=== PATIENT | female | born 1955 | race Caucasian/White ===

== ENCOUNTER 2017-11-15 08:02 | Emergency (ER) | payer OTHER, SELFPAY ==
[2017-11-15 08:09] VITALS: BP 113/79; PULSE 73; RESP 16; TEMP 36.8; O2SAT 99
--- NOTE | 2017-11-15 08:29 | DI.RAD_ITS ---
SYMPTOM/DIAGNOSIS: COUGH, YELLOW SPUTUM, CRACKLES LT LOWER BASE PA AND LATERAL CHEST: Comparison is made with 11/24/15. The heart is normal in size. The lungs are clear. The mediastinal structures and pleura appear intact. CONCLUSION: Normal chest.
--- NOTE | 2017-11-15 08:42 | ED.GENADUL_ITS ---
Discharge Plan Disposition Patient Disposition: HOME Condition: Good Discharge Details Chief Complaint: RespSymp Clinical Impression: URI (upper respiratory infection), Cough, Community acquired pneumonia Primary Care Provider: Mikel Saldana ED Provider: Steve Falk Home Meds and New Rx's Prescriptions: New acetaminophen [Mapap Extra Strength] 500 MG tablet 1,000 mg PO Q6H 5 Days Qty: 60 RF: 0 ibuprofen [Motrin IB] 200 MG tablet 600 mg PO Q6H 5 Days Qty: 60 RF: 0 albuterol sulfate 90 mcg/actuation HFA aerosol inhaler 1 puff IH Q6H PRN (Reason: bronchospasm) Qty: 6.7 RF: 0 azithromycin 250 mg tablet See Label Instructions .ROUTE .COMPLEX Qty: 6 RF: 0 No Action gabapentin 100 MG capsule 100 mg PO HS 30 Days Qty: 30 RF: 5 ibuprofen 800 MG tablet 800 mg PO TID PRN (Reason: pain) 90 Days Qty: 90 RF: 3 valacyclovir [Valtrex] 500 MG tablet 500 mg PO Q12 HR Qty: 90 RF: 1 progesterone micronized [Prometrium] 200 MG capsule 200 mg PO DAILY Qty: 90 RF: 1 estradiol 0.5 MG tablet 0.5 mg PO DAILY Qty: 390 RF: 1 Discharge Instructions Instructions: Community Acquired Pneumonia (ED), Acute Cough (ED) Additional Instructions: Please take the antibiotic, the inhaler, Tylenol and Motrin for your throat pain. If you notice any worsening of your symptoms, or any new symptoms such as vomiting, diarrhea, fever, chills, shortness of breath, chest pain, numbness , weakness, or fainting , please return immediately to the emergency department for reevaluation. Please follow up with your primary care provider as soon as possible for reassessment and reevaluation. As always, it was a pleasure participating in your medical care today. Referrals: Mikel Saldana [Primary Care Provider] - Medical Decision Making This is a 62-year-old female who presents with 1 week of malaise, upper respiratory infection symptoms, mild cough with productive yellow sputum. She denies any chest pain, fever, severe neck pain. Physical exam demonstrates minimal crackles in left lower lung niño. We will get an x-ray to evaluate for potential pneumonia. She has a history of a tonsillectomy, throat shows no significant abnormalities. Although she has a mild sore throat she shows no evidence of airway compromise, swelling in her throat, difficulty swallowing, or signs of Cezar's angina. We will give Toradol and Decadron, as well as one breathing treatment. I feel her symptoms are most likely secondary to a viral URI, and potentially chronic bronchitis. With normal vital signs and no signs of acute distress, I feel that she will be safe for discharge home. 9:40 AM Patient is feeling much better after her breathing treatment, the viscous lidocaine the Decadron and Toradol. Chest x-ray shows concerns for mild questionable right middle lobe and posterior retrocardiac small infiltrate. With her clinical symptoms as well as the prolonged duration I feel that she the patient would benefit from an antibiotic trial for potential community- acquired pneumonia. We will recommend continued hydration at home, I will give her a albuterol inhaler for her respiratory symptoms as she did have a notable improvement here with her DuoNeb. Recommend continued fluids Tylenol and Motrin as needed. We discussed red flags which to return. I have extensively reviewed the treatment plan and discharge instructions with the patient. I have addressed all patient concerns at this time. The patient was made aware of what symptoms to monitor for that would warrant a return to the emergency department. Discussed the plan with the patient, they demonstrate verbal understanding and agreement with our assessment and plan at this time. HPI General Date/Time Provider Initiated Documentation: 11/15/17 08:12 . HPI Narrative: This is a 62-year-old female with a past medical history of herpes, takes valacyclovir, as well as supplemental estrogen to moderate her menopause symptoms. She presents today for feelings of malaise upper respiratory symptoms. Patient states that for the last week she has had mild sore throat, congestion, runny nose, mild cough with productive yellow sputum. Her symptoms have continued and not improved over the last few days. She also does have mild headache, which she states it is in the front of her neck, with no associated neck pain. She denies any fevers or vomiting, she does admit to occasional loose stool. She denies any hemoptysis, hematemesis, hematochezia, melena, acholic stool. She denies any chest pain, arm pain, or neck pain. She denies any symptoms of shortness of breath. Denies PE risk factors such as recent long car rides, immobilization, recent surgery, prior history of DVT or PE, family history of PE or DVT, morbid obesity, and smoking , hemoptysis, history of cancer. She denies any cardiac or intracranial disease. She denies any other complaints at this time. She denies any tobacco abuse. She denies any pertinent recent surgeries, she denies any pertinent family history. Related Data Home Medications Medication Instructions Recorded Confirmed gabapentin 100 mg PO HS 30 Days #30 tab-cap 07/30/17 11/15/17 ibuprofen 800 mg tablet 800 mg PO TID PRN 90 Days #90 09/21/17 11/15/17 tab-cap estradiol 0.5 mg PO DAILY #390 tab-cap 09/27/17 11/15/17 progesterone micronized 200 mg PO DAILY #90 tab-cap 09/27/17 11/15/17 [Prometrium] valacyclovir [Valtrex] 500 mg PO Q12 HR #90 tab-cap 09/27/17 11/15/17 acetaminophen [Mapap Extra 1,000 mg PO Q6H 5 Days #60 tab 11/15/17 Strength] albuterol sulfate 1 puff IH Q6H PRN #6.7 gm 11/15/17 azithromycin See Label Instructions .ROUTE 11/15/17 .COMPLEX #6 tab ibuprofen [Motrin Ib] 600 mg PO Q6H 5 Days #60 tab 11/15/17 Previous Rx's Medication Instructions Recorded gabapentin 100 mg PO HS 30 Days #30 tab-cap 07/30/17 ibuprofen 800 mg tablet 800 mg PO TID PRN 90 Days #90 09/21/17 tab-cap estradiol 0.5 mg PO DAILY #390 tab-cap 09/27/17 progesterone micronized 200 mg PO DAILY #90 tab-cap 09/27/17 [Prometrium] valacyclovir [Valtrex] 500 mg PO Q12 HR #90 tab-cap 09/27/17 acetaminophen [Mapap Extra 1,000 mg PO Q6H 5 Days #60 tab 11/15/17 Strength] albuterol sulfate 1 puff IH Q6H PRN #6.7 gm 11/15/17 azithromycin See Label Instructions .ROUTE 11/15/17 .COMPLEX #6 tab ibuprofen [Motrin Ib] 600 mg PO Q6H 5 Days #60 tab 11/15/17 Allergies Allergy/AdvReac Type Severity Reaction Status Date / Time No Known Allergies Allergy Unverified 11/15/17 08:14 General Stated Complaint: RespSymp TORIBIO: 3 Review of Systems Review of Systems All systems reviewed & are unremarkable except as noted in HPI and below PFSH Family History Father Hearing loss Kidney stones Mother Chronic pain Brother No problems noted. Brother Neoplasm Grandfather Diabetes Essential hypertension Grandmother No problems noted. Son Neoplasm Daughter No problems noted. Medical History Pancreatic cyst Social History Smoking/Tobacco Use Status: Never Surgical History section Cholecystectomy Removal of benign pancreatic cyst Exam Narrative Exam Narrative: 1.Const: Well-nourished, Well-developed, appearing stated age 2.Eyes: PERRL, no conjunctival injection, and symmetrical lids. 3.ENT: Atraumatic external nose and ears. Moist MM. Neck: Symmetric, trachea midline, No thyromegaly. Tonsils absent no erythema, uvula midline, no signs of parapharyngeal compromise, no signs of neck swelling or tenderness, no evidence of swelling in the anterior neck spaces. Patient demonstrates good movement of cervical neck. There is no nuchal rigidity, no nuchal tenderness. Patient is able to flex the neck without any difficulty or significant pain. Negative Kernig's and Brudzinski sign. 4.CVS: +S1/S2, No murmurs or gallops. Peripheral pulses 2+ and equal in all extremities. Brisk capillary refill in all extremities. 5.RESP: Unlabored respiratory effort. Clear to auscultation bilaterally. No wheezes or rhonchi, however minimal crackles in the left lower lung niño. 6.GI: Soft, Nontender/Nondistended, No hepatosplenomegaly. No guarding or rebound. 7.MSK: Normocephalic/Atraumatic, Extremities w/o deformity or ttp No cyanosis or clubbing, Normal movement of all extremities 8.Skin: Warm, Dry. No rashes or lesions. 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 Sensation grossly intact, no focal neurologic deficits. 10.Psych: (AAO) x3. Appropriate mood and affect Course Vital Signs Temperature 36.8 C 11/15/17 08:09 Pulse 73 11/15/17 08:09 Respiratory Rate 16 11/15/17 08:09 Blood Pressure 113/79 11/15/17 08:09 Pulse Oximetry 99 11/15/17 08:09 Temperature 36.8 C 11/15/17 08:09 Temperature Source Skin 11/15/17 08:09 Pulse 73 11/15/17 08:09 Respiratory Rate 16 11/15/17 08:09 Respiratory Effort 11/15/17 08:11 Respiratory Depth Normal 11/15/17 08:11 Blood Pressure 113/79 11/15/17 08:09 Blood Pressure Position Sitting 11/15/17 08:09 Pulse Oximetry 99 11/15/17 08:09 Oxygen Delivery Method Room Air 11/15/17 08:09 Oxygen Flow Rate 0 11/15/17 08:09
[2017-11-15] MEDS: Acetaminophen 500 MG TAB 1000 MG PO (08:48)
[2017-11-15] MEDS: Lidocaine 2% Viscous 15 ML CUP PO (08:50)
[2017-11-15] MEDS: Albuterol/Ipratropium 3 ML UPD VIAL UPD (08:55)
[2017-11-15] MEDS: Ketorolac 30 MG/ML VIAL 15 MG IM (08:55)
[2017-11-15] MEDS: Dexamethasone 10 MG/ML VIAL (08:57)
--- NOTE | 2017-11-15 08:59 | NUR.NOTE ---
Nursing Note: Report taken from [place] RN. Patient assessed - resting comfortably, NAD. Medications given per orders. Will continue to monitor. Callbell within reach.
[2017-11-15 09:50] VITALS: BP 113/79; PULSE 73; RESP 16; TEMP 36.8; O2SAT 99
== END 2017-11-15 09:50 | disposition home or self-care (01) ==
PROVIDERS: Emergency Provider Student in an Organized Health Care Education/Training Program; PCP Family Medicine
DX: J18.9 Pneumonia, unspecified organism (principal); J06.9 Acute upper respiratory infection, unspecified
CPT/HCPCS: 94640; 96372; 96374; 99284; 71046; 99285; J1100; J1885; J7620

== ENCOUNTER 2018-02-28 08:08 | Outpatient (CLI) | payer OTHER, SELFPAY ==
[2018-02-28 12:54] LABS: HCT 42.2 % (36.0-46.0); HGB 14.2 g/dL (12.0-15.5); Mean Corp. HGB Concentration 33.6 g/dL (32.0-36.0); Mean Corpuscular Hemoglobin 29.5 pg (27.0-33.0); Mean Corpuscular Volume 87.6 fL (80-95); Platelet Count 190 x1000/uL (130-400); RBC 4.82 m/cumm (4.00-5.20); RBC Distribution Width 12.5 % (11.7-14.6)
[2018-02-28 13:40] LABS: ALT 21 U/L (12-78); AST 15 U/L (15-37); Albumin 3.8 g/dL (3.4-5.0); Alkaline Phosphatase 79 U/L (46-116); Anion Gap 6.1 mmol/L (3-11); BUN 23 mg/dL (7-18); Bilirubin, Total 0.3 mg/dL (0.2-1.0); CO2 28.9 mmol/L (21.0-32.0); CREATININE 0.83 mg/dL (0.55-1.02); Calcium 9.1 mg/dL (8.5-10.1); Chloride 104 mmol/L (98-107); Cholesterol 237 mg/dL (50-200); Glucose 92 mg/dL (70-100); HDL Cholesterol 53 mg/dL (40-60); LDL CHOLESTEROL 146 mg/dL (<100); Potassium 3.9 mmol/L (3.5-5.1); Sodium 139 mmol/L (136-145); Total Protein 6.8 g/dL (6.4-8.2); Triglyceride 224 mg/dL (30-150)
== END 2018-02-28 08:28 ==
PROVIDERS: PCP Family Medicine; Visit Provider Family Medicine
DX: Z00.00 Encounter for general adult medical examination without abnormal findings (principal); Z13.228 Encounter for screening for other metabolic disorders; Z13.220 Encounter for screening for lipoid disorders; Z13.29 Encounter for screening for other suspected endocrine disorder; Z01.818 Encounter for other preprocedural examination
CPT/HCPCS: 36415; 80053; 80061; 83721; 85027; 84443

== ENCOUNTER 2018-05-28 11:45 | Outpatient (CLI) | payer OTHER, SELFPAY ==
--- NOTE | 2018-05-28 11:40 | DI.RAD_ITS ---
SYMPTOM/DIAGNOSIS: CHEST PAIN, R07.9 PA AND LATERAL CHEST: The heart is normal in size. The lungs are clear. The mediastinal structures and pleura appear intact. CONCLUSION: Normal chest.
[2018-05-28 12:11] LABS: Abs Immature Grans 0.01 k/cumm (0.0-0.09); Absolute Basophil Count 0.03 k/cumm (0.0-0.2); Absolute Eosinophil Count 0.04 k/cumm (0.0-0.7); Absolute Lymphocyte Count 1.89 k/cumm (1.2-3.4); Absolute Monocyte Count 0.43 k/cumm (0.11-0.7); Basophils % 0.4; Eosinophils % 0.6; HCT 42.8 % (36.0-46.0); HGB 14.3 g/dL (12.0-15.5); Immature Grans % 0.1; Lymphocytes % 27.8; Mean Corp. HGB Concentration 33.4 g/dL (32.0-36.0); Mean Corpuscular Hemoglobin 29.3 pg (27.0-33.0); Mean Corpuscular Volume 87.7 fL (80-95); Mean Platelet Volume 11.2 fL (8.0-11.0); Monocytes % 6.3; Neutrophils % 64.8; Platelet Count 156 x1000/uL (130-400); RBC 4.88 m/cumm (4.00-5.20); RBC Distribution Width 12.3 % (11.7-14.6)
[2018-05-28 13:43] LABS: ALT 20 U/L (12-78); AST 12 U/L (15-37); Albumin 3.8 g/dL (3.4-5.0); Alkaline Phosphatase 86 U/L (46-116); Anion Gap 9.9 mmol/L (3-11); BUN 20 mg/dL (7-18); Bilirubin, Total 0.4 mg/dL (0.2-1.0); CO2 27.1 mmol/L (21.0-32.0); CREATININE 0.91 mg/dL (0.55-1.02); Calcium 9.1 mg/dL (8.5-10.1); Chloride 103 mmol/L (98-107); Cholesterol 226 mg/dL (50-200); Glucose 117 mg/dL (70-100); HDL Cholesterol 45 mg/dL (40-60); LDL CHOLESTEROL 132 mg/dL (<100); Potassium 3.9 mmol/L (3.5-5.1); Sodium 140 mmol/L (136-145); TSH (W/Ref FT4) 1.54 uIU/mL (0.358-3.74); Total Protein 6.8 g/dL (6.4-8.2); Triglyceride 290 mg/dL (30-150)
== END 2018-05-28 12:05 ==
PROVIDERS: PCP Family Medicine; Visit Provider Family Medicine
DX: R07.9 Chest pain, unspecified (principal); E78.5 Hyperlipidemia, unspecified
CPT/HCPCS: 36415; 80053; 80061; 83721; 71046; 84443; 85025

== ENCOUNTER 2018-06-05 15:02 | Emergency (ER) | payer OTHER, SELFPAY ==
[2018-06-05 15:14] VITALS: BP 106/64; PULSE 58; RESP 20; TEMP 36.8; O2SAT 95
[2018-06-05 15:25] VITALS: RESP 20
--- NOTE | 2018-06-05 15:28 | NUR.NOTE ---
Pt declines an IV--states will have blood drawn but will not stay for a 2nd troponin.Nursing Note:
--- NOTE | 2018-06-05 15:30 | W.ED.GENAD ---
Discharge Plan Disposition Patient Disposition: HOME Condition: Stable Discharge Details Chief Complaint: Chest Pain Clinical Impression: Chest pain Primary Care Provider: Mikel Saldana ED Provider: Donaldo Young Home Meds and New Rx's Prescriptions: No Action buspirone 10 mg tablet 5 mg PO BID RF: 0 aspirin [Adult Aspirin Regimen] 81 mg tablet,delayed release (DR/EC) 81 mg PO DAILY Qty: 90 RF: 0 nitroglycerin [Nitrostat] 0.4 mg tablet, sublingual 0.4 mg SL Q5-15M PRN (Reason: chest pain) Qty: 20 RF: 0 estradiol 0.5 mg tablet 0.5 mg PO DAILY Qty: 90 RF: 3 progesterone micronized [Prometrium] 200 mg capsule 200 mg PO DAILY Qty: 90 RF: 1 valacyclovir [Valtrex] 500 MG tablet 500 mg PO Q12 HR Qty: 90 RF: 1 gabapentin 100 mg capsule 100 mg PO HS 30 Days Qty: 30 RF: 11 albuterol sulfate 90 mcg/actuation HFA aerosol inhaler 1 puff IH Q6H PRN (Reason: bronchospasm) Qty: 6.7 RF: 0 Discharge Instructions Additional Instructions: Your blood work did not show any concerning findings follow up for your schedule stress test and your primary care provider after this if your pain significantly worsens, you have vomit or difficulty breathing return to the emergency department Medical Decision Making 62 yo female comes in with chest tightness. She states it started while standing about 3 hours ago. Denies radiation, n/v, diaphoresis or pain with exertion. She was admitted in [facility] this past Sunday for similar symptoms with negative w/u per pt and is scheduled for outpatient stress test . She currently states her pain is all but gone, ecg non diagnostic. She has no tachycardia, hypoxia or evidence of dvt on exam so doubt Pe at this time. no tearing back pain and normal vascular exam so doubt dissection. She has normal lung sounds without cough or fever or pleuritic pain so doubt ptx or pna and will hold on chest xray at this time. I suspect anxiety, heart score is 3. Will obtain troponin. pt's initial labs unremarkable, and remains stable. I recommended second troponin but she declined, she has the capacity to make her own decisions and understands risks of leaving without second troponin including and disability. She is going to f/u with her pcp and return precautions given Differential Diagnosis acs, chest wall pain, anxiety Lab Data Lab results reviewed: Yes I reviewed the patient's lab results. ECG Data Attestation: I personally reviewed and interpreted this ECG (s) as follows: Prior ECG tracings: not available for review Interpretation: sinus bradycardia, rate of 53, no acute st t wave ischemic findings HPI General Mode of arrival: ambulatory. Date/Time Provider Initiated Documentation: 06/05/18 15:04. Limitations to Documentation: no limitations. Information obtained by: patient. History of Present Illness 62 year old F presents to the emergency department with the chief complaint of chest pain, described as moderate, Quality is described as aching, and is localized to the chest. Patient reports no radiation. Patient started experiencing this hour(s) (3) and it has been other (improving). No relieving factors improve symptom(s), No exacerbating factors reported . Patient did receive the following treatments prior to arrival, none Related Data Home Medications Medication Instructions Recorded Confirmed valacyclovir [Valtrex] 500 mg PO Q12 HR #90 tab-cap 09/27/17 06/05/18 albuterol sulfate 1 puff IH Q6H PRN #6.7 gm 11/15/17 06/05/18 gabapentin 100 mg capsule 100 mg PO HS 30 Days #30 tab-cap 12/21/17 06/05/18 buspirone 10 mg tablet 5 mg PO BID tab 02/25/18 06/05/18 estradiol 0.5 mg tablet 0.5 mg PO DAILY #90 tab-cap 04/18/18 06/05/18 progesterone micronized 200 mg 200 mg PO DAILY #90 tab-cap 04/18/18 06/05/18 capsule aspirin 81 mg tablet,delayed 81 mg PO DAILY #90 tab 05/28/18 06/05/18 release nitroglycerin 0.4 mg sublingual 0.4 mg SL Q5-15M PRN #20 tab 05/28/18 06/05/18 tablet Previous Rx's Medication Instructions Recorded valacyclovir [Valtrex] 500 mg PO Q12 HR #90 tab-cap 09/27/17 albuterol sulfate 1 puff IH Q6H PRN #6.7 gm 11/15/17 gabapentin 100 mg capsule 100 mg PO HS 30 Days #30 tab-cap 12/21/17 estradiol 0.5 mg tablet 0.5 mg PO DAILY #90 tab-cap 04/18/18 progesterone micronized 200 mg 200 mg PO DAILY #90 tab-cap 04/18/18 capsule aspirin 81 mg tablet,delayed 81 mg PO DAILY #90 tab 05/28/18 release nitroglycerin 0.4 mg sublingual 0.4 mg SL Q5-15M PRN #20 tab 05/28/18 tablet Allergies Allergy/AdvReac Type Severity Reaction Status Date / Time No Known Allergies Allergy Unverified 06/03/18 13:07 General Stated Complaint: Chest Pain TORIBIO: 2 Review of Systems Review of Systems All systems reviewed & are unremarkable except as noted in HPI and below Constitutional Denies chills, Denies fever(s) and Denies weakness ENT Denies change in voice Cardiovascular Denies dyspnea Respiratory Denies cough and Denies dyspnea Gastrointestinal Denies abdominal pain, Denies nausea and Denies vomiting Integumentary/Breasts Denies rash Neurologic Denies weakness PFSH Surgical History section Cholecystectomy Removal of benign pancreatic cyst Family History Father Hearing loss Kidney stones Mother Chronic pain Brother No problems noted. Brother Prostate cancer Paternal Grandfather Diabetes Essential hypertension Maternal Grandmother No problems noted. Son Cancer Maternal Grandfather Liver cancer Paternal Grandmother Heart disease Social History Smoking/Tobacco Use Status: Never Alcohol Intake: never Drug use: Never Substance use type: does not use Household members: none Housing: house Pets and animals: No Sexually active: Yes Do you think of yourself as: straight/heterosexual Current gender identity: female Duration: 15-30 minutes/day Frequency: 3-4 times per week Estela/Moravian: Sabianist Do you feel safe at home: Yes Do you feel safe in your relationship?: Yes Exam Const General: no acute distress Orientation: alert HENMA Head: normal to inspection Ears: external ears normal General nose exam: external nose normal Mouth: moist mucous membranes Eyes General: appearance normal, both eyes and all related structures Neck Neck: normal visual inspection Resp Effort & Inspection: normal respiratory effort and able to speak in complete sentences Cardio Rate: regular rate Skin General skin exam: no rashes or lesions noted Neuro General: alert and oriented x3 Extrem General: normal to inspection Psych Mental Status: mental status grossly normal Course Vital Signs Temperature 36.8 C 06/05/18 15:14 Pulse 58 L 06/05/18 15:14 Respiratory Rate 20 06/05/18 15:14 Blood Pressure 106/64 06/05/18 15:14 Pulse Oximetry 95 06/05/18 15:14 Temperature 36.8 C 06/05/18 15:14 Temperature Source Temporal Artery Scan 06/05/18 15:14 Pulse 58 L 06/05/18 15:14 Respiratory Rate 20 06/05/18 15:14 Respiratory Effort Non-Labored 06/05/18 15:14 Blood Pressure 106/64 06/05/18 15:14 Blood Pressure Position Standing 06/05/18 15:14 Pulse Oximetry 95 06/05/18 15:14 Pain Level 2 06/05/18 15:14
--- NOTE | 2018-06-05 15:35 | ED.GENADUL_ITS ---
Discharge Plan Disposition Patient Disposition: HOME Condition: Stable Discharge Details Chief Complaint: Chest Pain Clinical Impression: Chest pain Primary Care Provider: Mikel Saldana ED Provider: Donaldo Young Home Meds and New Rx's Prescriptions: No Action buspirone 10 mg tablet 5 mg PO BID RF: 0 aspirin [Adult Aspirin Regimen] 81 mg tablet,delayed release (DR/EC) 81 mg PO DAILY Qty: 90 RF: 0 nitroglycerin [Nitrostat] 0.4 mg tablet, sublingual 0.4 mg SL Q5-15M PRN (Reason: chest pain) Qty: 20 RF: 0 estradiol 0.5 mg tablet 0.5 mg PO DAILY Qty: 90 RF: 3 progesterone micronized [Prometrium] 200 mg capsule 200 mg PO DAILY Qty: 90 RF: 1 valacyclovir [Valtrex] 500 MG tablet 500 mg PO Q12 HR Qty: 90 RF: 1 gabapentin 100 mg capsule 100 mg PO HS 30 Days Qty: 30 RF: 11 albuterol sulfate 90 mcg/actuation HFA aerosol inhaler 1 puff IH Q6H PRN (Reason: bronchospasm) Qty: 6.7 RF: 0 Discharge Instructions Additional Instructions: Your blood work did not show any concerning findings follow up for your schedule stress test and your primary care provider after this if your pain significantly worsens, you have vomit or difficulty breathing return to the emergency department Medical Decision Making 62 yo female comes in with chest tightness. She states it started while standing about 3 hours ago. Denies radiation, n/v, diaphoresis or pain with exertion. She was admitted in [facility] this past Sunday for similar symptoms with n egative w/u per pt and is scheduled for outpatient stress test . She currently states her pain is all but gone, ecg non diagnostic. She has no tachycardia, hypoxia or evidence of dvt on exam so doubt Pe at this time. no tearing back pain and normal vascular exam so doubt dissection. She has normal lung sounds without cough or fever or pleuritic pain so doubt ptx or pna and will hold on chest xray at this time. I suspect anxiety, heart score is 3. Will obtain troponin. pt's initial labs unremarkable, and remains stable. I recommended second troponin but she declined, she has the capacity to make her own decisions and understands risks of leaving without second troponin including and disability. She is going to f/u with her pcp and return precautions given Differential Diagnosis acs, chest wall pain, anxiety Lab Data Lab results reviewed: Yes I reviewed the patient's lab results. ECG Data Attestation: I personally reviewed and interpreted this ECG (s) as follows: Prior ECG tracings: not available for review Interpretation: sinus bradycardia, rate of 53, no acute st t wave ischemic findings HPI General Mode of arrival: ambulatory . Date/Time Provider Initiated Documentation: 06/05/18 15:04 . Limitations to Documentation: no limitations . Information obtained by: patient . History of Present Illness 62 year old F presents to the emergency department with the chief complaint of chest pain, described as moderate, Quality is described as aching, and is localized to the chest. Patient reports no radiation. Patient started experiencing this hour(s) (3) and it has been other (improving). No relieving factors improve symptom(s), No exacerbating factors reported . Patient did receive the following treatments prior to arrival, none Related Data Home Medications Medication Instructions Recorded Confirmed valacyclovir [Valtrex] 500 mg PO Q12 HR #90 tab-cap 09/27/17 06/05/18 albuterol sulfate 1 puff IH Q6H PRN #6.7 gm 11/15/17 06/05/18 gabapentin 100 mg capsule 100 mg PO HS 30 Days #30 tab-cap 12/21/17 06/05/18 buspirone 10 mg tablet 5 mg PO BID tab 02/25/18 06/05/18 estradiol 0.5 mg tablet 0.5 mg PO DAILY #90 tab-cap 04/18/18 06/05/18 progesterone micronized 200 mg 200 mg PO DAILY #90 tab-cap 04/18/18 06/05/18 capsule aspirin 81 mg tablet,delayed 81 mg PO DAILY #90 tab 05/28/18 06/05/18 release nitroglycerin 0.4 mg sublingual 0.4 mg SL Q5-15M PRN #20 tab 05/28/18 06/05/18 tablet Previous Rx's Medication Instructions Recorded valacyclovir [Valtrex] 500 mg PO Q12 HR #90 tab-cap 09/27/17 albuterol sulfate 1 puff IH Q6H PRN #6.7 gm 11/15/17 gabapentin 100 mg capsule 100 mg PO HS 30 Days #30 tab-cap 12/21/17 estradiol 0.5 mg tablet 0.5 mg PO DAILY #90 tab-cap 04/18/18 progesterone micronized 200 mg 200 mg PO DAILY #90 tab-cap 04/18/18 capsule aspirin 81 mg tablet,delayed 81 mg PO DAILY #90 tab 05/28/18 release nitroglycerin 0.4 mg sublingual 0.4 mg SL Q5-15M PRN #20 tab 05/28/18 tablet Allergies Allergy/AdvReac Type Severity Reaction Status Date / Time No Known Allergies Allergy Unverified 06/03/18 13:07 General Stated Complaint: Chest Pain TORIBIO: 2 Review of Systems Review of Systems All systems reviewed & are unremarkable except as noted in HPI and below Constitutional Denies chills, Denies fever(s) and Denies weakness ENT Denies change in voice Cardiovascular Denies dyspnea Respiratory Denies cough and Denies dyspnea Gastrointestinal Denies abdominal pain, Denies nausea and Denies vomiting Integumentary/Breasts Denies rash Neurologic Denies weakness PFSH Surgical History section Cholecystectomy Removal of benign pancreatic cyst Family History Father Hearing loss Kidney stones Mother Chronic pain Brother No problems noted. Brother Prostate cancer Paternal Grandfather Diabetes Essential hypertension Maternal Grandmother No problems noted. Son Cancer Maternal Grandfather Liver cancer Paternal Grandmother Heart disease Social History Smoking/Tobacco Use Status: Never Alcohol Intake: never Drug use: Never Substance use type: does not use Household members: none Housing: house Pets and animals: No Sexually active: Yes Do you think of yourself as: straight/heterosexual Current gender identity: female Duration: 15-30 minutes/day Frequency: 3-4 times per week Estela/Islam: Pentecostalism Do you feel safe at home: Yes Do you feel safe in your relationship?: Yes Exam Const General: no acute distress Orientation: alert HENMT Head: normal to inspection Ears: external ears normal General nose exam: external nose normal Mouth: moist mucous membranes Eyes General: appearance normal, both eyes and all related structures Neck Neck: normal visual inspection Resp Effort & Inspection: normal respiratory effort and able to speak in complete sentences Cardio Rate: regular rate Skin General skin exam: no rashes or lesions noted Neuro General: alert and oriented x3 Extrem General: normal to inspection Psych Mental Status: mental status grossly normal Course Vital Signs Temperature 36.8 C 06/05/18 15:14 Pulse 58 L 06/05/18 15:14 Respiratory Rate 20 06/05/18 15:14 Blood Pressure 106/64 06/05/18 15:14 Pulse Oximetry 95 06/05/18 15:14 Temperature 36.8 C 06/05/18 15:14 Temperature Source Temporal Artery Scan 06/05/18 15:14 Pulse 58 L 06/05/18 15:14 Respiratory Rate 20 06/05/18 15:14 Respiratory Effort Non-Labored 06/05/18 15:14 Blood Pressure 106/64 06/05/18 15:14 Blood Pressure Position Standing 06/05/18 15:14 Pulse Oximetry 95 06/05/18 15:14 Pain Level 2 06/05/18 15:14
[2018-06-05 15:43] LABS: Absolute Basophil Count 0.03 k/cumm (0.0-0.2); Absolute Eosinophil Count 0.03 k/cumm (0.0-0.7); Absolute Lymphocyte Count 1.49 k/cumm (1.2-3.4); Absolute Monocyte Count 0.43 k/cumm (0.11-0.7); Absolute Neutrophil Count 4.32 k/cumm (1.2-6.7); Basophils % 0.5; Eosinophils % 0.5; HCT 40.5 % (36.0-46.0); HGB 13.4 g/dL (12.0-15.5); Lymphocytes % 23.7; Mean Corp. HGB Concentration 33.1 g/dL (32.0-36.0); Mean Corpuscular Hemoglobin 28.9 pg (27.0-33.0); Mean Corpuscular Volume 87.3 fL (80-95); Mean Platelet Volume 11.1 fL (8.0-11.0); Monocytes % 6.8; Neutrophils % 68.5; Platelet Count 169 x1000/uL (130-400); RBC 4.64 m/cumm (4.00-5.20); RBC Distribution Width 12.3 % (11.7-14.6)
[2018-06-05 16:00] LABS: ALT 18 U/L (12-78); AST 12 U/L (15-37); Albumin 3.8 g/dL (3.4-5.0); Alkaline Phosphatase 82 U/L (46-116); Anion Gap 9.1 mmol/L (3-11); BUN 28 mg/dL (7-18); Bilirubin, Total 0.3 mg/dL (0.2-1.0); CO2 26.9 mmol/L (21.0-32.0); CREATININE 0.88 mg/dL (0.55-1.02); Calcium 9.7 mg/dL (8.5-10.1); Chloride 104 mmol/L (98-107); Glucose 93 mg/dL (70-100); Potassium 3.8 mmol/L (3.5-5.1); Sodium 140 mmol/L (136-145); Total Protein 6.9 g/dL (6.4-8.2)
[2018-06-05 16:07] LABS: Troponin I < 0.02 ng/mL (0.00-0.06)
--- NOTE | 2018-06-05 16:08 | NUR.NOTE ---
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
== END 2018-06-05 16:24 | disposition home or self-care (01) ==
PROVIDERS: Emergency Provider Emergency Medicine; PCP Family Medicine
DX: R07.9 Chest pain, unspecified (principal); R00.2 Palpitations
CPT/HCPCS: 36415; 80053; 93005; 99284; 84484; 85025; 93010

== ENCOUNTER 2018-06-10 00:40 | Outpatient (CLI) | payer OTHER, SELFPAY ==
--- NOTE | 2018-06-10 09:00 | DI.MAMMO_ITS ---
SYMPTOM/DIAGNOSIS: SCREENING, GENERAL WELL FEMALE EXAM, Z00.00 MAMMOGRAMS: Mammograms were interpreted according to the usual protocol including computer analysis with CAD system, tomosynthesis and C view imaging. Comparison is made with prior examinations. Breast density, Category C. No suspicious masses or microcalcifications are seen. There is a focal asymmetric density in the upper left breast seen on the mediolateral oblique view. This appears more prominent compared to the prior examination. A spot compression view is requested. Ultrasound may be indicated at that time. IMPRESSION: Additional views of the left breast as described above. Category 0. MQSA ASSESSMENT OF FINDINGS: Incomplete: Needs additional imaging evaluation. Category 0. Patient will receive a letter notifying them of these results. Bi-RADS category C. The breasts are heterogeneously dense, which may obscure small masses. Patient was scheduled for 06/28/18 and called and put appointment in pending and said wanted to wait on this. We will send results to Dr Saldana making him aware of this.
== END 2018-06-10 01:00 ==
PROVIDERS: PCP Family Medicine; Visit Provider Family Medicine
DX: Z00.00 Encounter for general adult medical examination without abnormal findings (principal); Z12.31 Encounter for screening mammogram for malignant neoplasm of breast; R92.8 Other abnormal and inconclusive findings on diagnostic imaging of breast
CPT/HCPCS: 77063; 77067

== ENCOUNTER 2018-10-23 11:09 | Outpatient (CLI) | payer OTHER, SELFPAY ==
[2018-10-23 12:16] LABS: HCT 41.9 % (36.0-46.0); HGB 13.9 g/dL (12.0-15.5); Mean Corp. HGB Concentration 33.2 g/dL (32.0-36.0); Mean Corpuscular Hemoglobin 28.7 pg (27.0-33.0); Mean Corpuscular Volume 86.6 fL (80-95); Mean Platelet Volume 11.9 fL (8.0-11.0); Platelet Count 181 x1000/uL (130-400); RBC 4.84 m/cumm (4.00-5.20); RBC Distribution Width 12.9 % (11.7-14.6); White Blood Cell Count 6.63 k/cumm (4.4-10.8)
[2018-10-23 12:54] LABS: ALT 19 U/L (14-59); AST 14 U/L (15-37); Albumin 3.8 g/dL (3.4-5.0); Alkaline Phosphatase 89 U/L (46-116); Anion Gap 10.1 mmol/L (3-11); BUN 13 mg/dL (7-18); Bilirubin, Total 0.6 mg/dL (0.2-1.0); CO2 24.9 mmol/L (21.0-32.0); CREATININE 0.82 mg/dL (0.55-1.02); Calcium 8.9 mg/dL (8.5-10.1); Chloride 103 mmol/L (98-107); Glucose 111 mg/dL (70-100); Potassium 4.4 mmol/L (3.5-5.1); Sodium 138 mmol/L (136-145); TSH (W/Ref FT4) 0.87 uIU/mL (0.36-3.74); Total Protein 6.6 g/dL (6.4-8.2)
== END 2018-10-23 11:29 ==
PROVIDERS: PCP Family Medicine; Visit Provider Family Medicine
DX: K59.00 Constipation, unspecified (principal)
CPT/HCPCS: 36415; 80053; 85027; 84443

== ENCOUNTER 2019-07-10 02:05 | Outpatient (CLI) | payer OTHER, SELFPAY ==
--- NOTE | 2019-07-10 08:30 | DI.MAMMO_ITS ---
EXAM: MAMMO SCREENING CLINICAL HISTORY: screening,Z12.39 TECHNIQUE: Mammograms were interpreted according to the usual protocol including computer analysis w [employer] CAD system, tomosynthesis and C-view imaging. COMPARISON: 2011 through 2019. FINDINGS: The breasts are composed of heterogeneously dense fibroglandular densities, Breast Density category C . No suspicious masses or suspicious microcalcifications are seen. No skin thickening or abnormal axillary lymph nodes are seen. There has been no significant change from prior exams. IMPRESSION: BI-RADS Category 1: Negative mammogram. Yearly screening mammography is recommended. Breast density category C, heterogeneously dense tissue which decreases the sensitivity of the mammog rohith. The mammogram demonstrates the patient's breast tissue is dense. Dense breast tissue is very common a nd is not abnormal but dense breast tissue can make it harder to find cancer on a mammogram. Also, de nse breast tissue may increase breast cancer risk. This information about the result of the mammogram report was provided to the patient to raise their awareness. Use this report when you speak with the patient about their risks for breast cancer, which includes their family history. At that time, you may recommend additional screening tests (Ultrasound or MRI) as they might be useful based on their r isk. A negative radiographic report should not delay biopsy if a dominant or clinically suspicious mass is present. Up to ten percent of cancers are not identified on mammography. A negative report may reinforce clinical impression. Adenosis and dense breasts may obscure an underlying neoplasm. False positive reports average 6 to 10%.
== END 2019-07-10 02:25 ==
PROVIDERS: PCP Family Medicine; Visit Provider Nurse Practitioner Family
DX: Z12.31 Encounter for screening mammogram for malignant neoplasm of breast (principal)
CPT/HCPCS: 77063; 77067

== ENCOUNTER 2020-03-25 20:21 | Outpatient (REF) | payer MEDICARE, OTHER, SELFPAY ==
[2020-03-27 17:05] LABS: COVID-19 RT-PCR UVMMC Result Negative (Negative)
== END 2020-03-25 20:22 | disposition home or self-care (01) ==
LOC: LBN 20:21
PROVIDERS: PCP Family Medicine; Visit Provider Family Medicine
DX: Z20.822 Contact with and (suspected) exposure to COVID-19 (principal)
CPT/HCPCS: U0003

== ENCOUNTER 2020-04-07 17:38 | Outpatient (REF) | payer MEDICARE, OTHER, SELFPAY ==
[2020-04-09 12:16] LABS: Lyme Ab w Rflx to Lyme Confirm Negative (Negative)
== END 2020-04-07 17:39 | disposition home or self-care (01) ==
LOC: LBN 17:38
PROVIDERS: PCP Family Medicine; Visit Provider Emergency Medicine
DX: M25.59 Pain in other specified joint (principal)
CPT/HCPCS: 86618

== ENCOUNTER 2020-05-26 03:07 | Outpatient (CLI) | payer MEDICARE, OTHER, SELFPAY ==
[2020-05-26 12:43] LABS: Hemoglobin A1C 5.4 % (<5.7)
[2020-05-26 13:07] LABS: BUN 19 mg/dL (7-18); CREATININE 0.8 mg/dL (0.55-1.02); Calculated LDL 143 mg/dL (<100); Chloride 108 mmol/L (98-107); Cholesterol 216 mg/dL (<200); Glucose 88 mg/dL (74-106); HDL Cholesterol 52 mg/dL (40-60); Potassium 4.3 mmol/L (3.5-5.1); Sodium 143 mmol/L (136-145); Triglyceride 108 mg/dL (<150); Vitamin B12 1992 pg/mL (193-986)
== END 2020-05-26 03:08 | disposition home or self-care (01) ==
LOC: LOS 03:07
PROVIDERS: PCP Family Medicine; Visit Provider Nurse Practitioner Family
DX: R73.01 Impaired fasting glucose (principal); E78.5 Hyperlipidemia, unspecified; R20.2 Paresthesia of skin
CPT/HCPCS: 36415; 80048; 80061; 82607; 83036

== ENCOUNTER 2020-07-15 09:18 | Outpatient (REF) | payer MEDICARE, OTHER, SELFPAY ==
--- NOTE | 2020-07-15 09:00 | PAPFT_PTH ---
PATIENT: Cierra Terrazas LOC: [facility] U#:[id number] AGE/SX: 64/F ROOM: RE07/15/[address]: FAHEEM Rojas : 1955 BED: DIS: 07/15/2020 SPEC #: [id number] RECD: 07/15/20 12:53 STATUS: NICO REYinka #: [id number] DESTINI: 07/15/20 09:[address]: Melissa Hernandez DEPT: [facility] [place] Cytology RECD BY: Lizz Toro ENTERED: 07/15/20 12:54 SP TYPE: PAPFT OTHR DR: FAHEEM Dubon Tissues: 1 - CX/ENDOCX FOR PAP SMEARS Procedures: PAP THIN PREP/UVM Screening HPV DNA PROBE Comments: [id number]
== END 2020-07-15 09:19 | disposition home or self-care (01) ==
LOC: LBN 09:18
PROVIDERS: PCP Nurse Practitioner Family; Visit Provider Nurse Practitioner Family
DX: Z12.4 Encounter for screening for malignant neoplasm of cervix (principal); Z11.51 Encounter for screening for human papillomavirus (HPV)
CPT/HCPCS: 88142; 87624

== ENCOUNTER 2020-09-23 03:38 | Outpatient (CLI) | payer MEDICARE, OTHER, SELFPAY ==
--- NOTE | 2020-09-23 07:30 | DI.DEXA_ITS ---
Exam(s) XR DEXA BONE DENSITY W/WO OLEG EXAM: XR DEXA BONE DENSITY W/WO OLEG CLINICAL HISTORY: assess for osteoporosis IN POSTMENOPAUSAL WOMAN,Z78.0 TECHNIQUE: COMPARISON: No exams were available for comparison FINDINGS: Lateral Spine Image: Unremarkable. No compression deformities identified. Left hip: Total T-Score: -0.6 Total Z-Score: 0.7 T- and Z-scores: Within normal limits. Lumbar Spine: Total T-Score: -0.9 Total Z-Score: 0.9 T- and Z-scores: Within normal limits. IMPRESSION: No evidence of osteoporosis.
== END 2020-09-23 03:58 ==
PROVIDERS: PCP Nurse Practitioner Family; Visit Provider Nurse Practitioner Family
DX: Z78.0 Asymptomatic menopausal state (principal)
CPT/HCPCS: 77080

== ENCOUNTER 2020-10-14 02:03 | Outpatient (CLI) | payer MEDICARE, OTHER, SELFPAY ==
--- NOTE | 2020-10-14 07:50 | DI.MAMMO_ITS ---
Exam(s) MAMMO SCREENING EXAM: MAMMO SCREENING CLINICAL HISTORY: screening,z12.39 TECHNIQUE: Mammograms were interpreted according to the usual protocol including computer analysis w [employer] CAD system, tomosynthesis and C-view imaging. COMPARISON: 2011 through 2019 FINDINGS: The breasts are composed of heterogeneously dense fibroglandular densities, Breast Density category C . No suspicious masses or suspicious microcalcifications are seen. There is a stable circumscribed nod ule in the upper outer quadrant of the right breast. No skin thickening or abnormal axillary lymph nodes are seen. There has been no significant change from prior exams. IMPRESSION: BI-RADS Cat 2 - Benign Findings Yearly screening mammography is recommended. Breast Density Category C, heterogeneously Dense. The mammogram demonstrates the patient's breast tissue is dense. Dense breast tissue is very common a nd is not abnormal but dense breast tissue can make it harder to find cancer on a mammogram. Also, de nse breast tissue may increase breast cancer risk. This information about the result of the mammogram report was provided to the patient to raise their awareness. Use this report when you speak with the patient about their risks for breast cancer, which includes their family history. At that time, you may recommend additional screening tests (Ultrasound or MRI) as they might be useful based on their r isk. A negative radiographic report should not delay biopsy if a dominant or clinically suspicious mass is present. Up to ten percent of cancers are not identified on mammography. A negative report may reinforce clinical impression. Adenosis and dense breasts may obscure an underlying neoplasm. False positive reports average 6 to 10%.
== END 2020-10-14 02:23 ==
PROVIDERS: PCP Nurse Practitioner Family; Visit Provider Nurse Practitioner Family
DX: Z12.31 Encounter for screening mammogram for malignant neoplasm of breast (principal)
CPT/HCPCS: 77063; 77067

== ENCOUNTER 2020-11-01 21:02 | Outpatient (REF) | payer MEDICARE, OTHER, SELFPAY ==
[2020-11-03 17:15] LABS: COVID-19 RT-PCR UVMMC Result Negative (Negative)
== END 2020-11-01 21:03 | disposition home or self-care (01) ==
LOC: NCHCN 21:02
PROVIDERS: PCP Nurse Practitioner Family; Visit Provider Nurse Practitioner Family
DX: K30 Functional dyspepsia; R52 Pain, unspecified; R51.9 Headache, unspecified; R68.83 Chills (without fever); Z20.822 Contact with and (suspected) exposure to COVID-19
CPT/HCPCS: U0003

== ENCOUNTER 2021-02-10 11:46 | Outpatient (REF) | payer MEDICARE, OTHER, SELFPAY ==
[2021-02-11 21:18] LABS: COVID-19 RT-PCR UVMMC Result Negative (Negative)
== END 2021-02-10 11:47 | disposition home or self-care (01) ==
LOC: LBN 11:46
PROVIDERS: PCP Nurse Practitioner Family; Visit Provider Physician Assistant Medical
DX: Z20.822 Contact with and (suspected) exposure to COVID-19 (principal)
CPT/HCPCS: U0003; U0005

== ENCOUNTER 2021-08-22 02:58 | Outpatient (CLI) | payer MEDICARE, OTHER, SELFPAY ==
[2021-08-22 12:57] LABS: Glucose 91 mg/dL (74-106)
[2021-08-22 13:08] LABS: Hemoglobin A1C 5.5 % (<5.7)
== END 2021-08-22 02:59 | disposition home or self-care (01) ==
LOC: LOS 02:58
PROVIDERS: PCP Nurse Practitioner Family; Visit Provider Family Medicine
DX: R73.9 Hyperglycemia, unspecified (principal)
CPT/HCPCS: 36415; 82947; 83036

== ENCOUNTER → 2021-10-18 01:30 | Outpatient (CLI) | payer MEDICARE, OTHER, SELFPAY ==
--- NOTE | 2021-10-18 07:30 | DI.MAMMO_ITS ---
Exam(s) MAMMO SCREENING EXAM: MAMMO SCREENING CLINICAL HISTORY: screening,Z12.39 TECHNIQUE: Bilateral full field digital CC and MLO mammographic images were obtained with 3D tomosyn thesis and utilizing computer aided detection (CAD). COMPARISON: Available for comparison. FINDINGS: Masses/Architectural Distortion: There has been interval increase in size of a nodule in the upper ou ter quadrant of the right breast currently measuring 1.4 cm compared with 0.9 cm on prior examination s. Microcalcifications: No suspicious pleomorphic-type are seen. Skin Thickening/Nipple Retraction: None. IMPRESSION: 1. Interval increase in size of a nodule in the upper outer quadrant of the right breast. 2. Further evaluation with a spot compression view and right breast ultrasound are requested. BI-RADS Category 0 - Assessment Incomplete: Need additional imaging evaluation Breast Density - Category C - Heterogeneously dense Breast density category C or D implies that the patient has dense breast tissue. Dense breast tissue is very common and is not abnormal but dense breast tissue can make it harder to find cancer on a ma mmogram. Also, dense breast tissue may increase their breast cancer risk. This information about the result of the mammogram report was provided to the patient to raise their awareness. Use this report when you speak with the patient about their risks for breast cancer, which includes their family hist ory. At that time, you may recommend for more screening tests (Ultrasound or MRI) as they might be us eful based on their risk. A negative radiographic report should not delay biopsy if a dominant or clinically suspicious mass is present. Up to ten percent of cancers are not identified on mammography. A negative report may reinforce clinical impression. Adenosis and dense breasts may obscure an underlying neoplasm. False positive reports average 6 to 10%. Patient will receive a letter notifying them of these results.
== END ==
PROVIDERS: PCP Nurse Practitioner Family; Visit Provider Nurse Practitioner Family
DX: Z12.31 Encounter for screening mammogram for malignant neoplasm of breast (principal); R92.8 Other abnormal and inconclusive findings on diagnostic imaging of breast
CPT/HCPCS: 77063; 77067

== ENCOUNTER → 2021-10-24 02:26 | Outpatient (CLI) | payer MEDICARE, OTHER, SELFPAY ==
--- NOTE | 2021-10-24 | DI.MAMMO_ITS ---
Exam(s) MG MAMMO SCREEN CALL BACK UNI US BREAST RT COMPLETE EXAM: MG MAMMO SCREEN CALL BACK UNI-RIGHT AND COMPLETE RIGHT BREAST ULTRASOUND CLINICAL HISTORY: F/U MAMMO, INCREASE IN SIZE OF UOQ RT NODULE. TECHNIQUE: Unilateral spot mammographic images obtained with 3D tomosynthesisand utilizing computer aided detection (CAD). . Complete RIGHT breast Ultrasound was also performed, including all 4 quadrants, the retroareolar ivis on, and the ipsilateral axilla. COMPARISON: Prior mammograms were reviewed. This additional imaging was performed due to findings described on the recent screening mammogram of 10/18/2021. FINDINGS: DIAGNOSTIC RIGHT BREAST MAMMOGRAM Additional mammographic views performed todaydo not dissipate the nodule. Proceeded with ultrasound. COMPLETE RIGHT BREAST ULTRASOUND: Today's ultrasound reveals a solitary finding which corresponds to the nodule on the mammogram. This is at the deep 9 o'clock position 6 cm from the nipple. This has the appearance of a cyst measures measuring 1.6 by 0.7 cm. There are no other focal ultrasound findings in all 4 quadrants nor in the retroareolar region. No ipsilateral axillary adenopathy. IMPRESSION: Benign-appearing right breast findings, as described above. Appropriate follow-up is repeat right breast mammogram and ultrasound in 6 months, with earlier imag ing if a self detected breast change is noted.. The patient was informed of these findings and recommendations prior to leaving the department today. BI-RADS Category 3 - 6 month - Probably Benign Finding: Recommend follow-up mammography in 6 months Breast Density - Category C - Heterogeneously dense Breast density Category C or D implies that the patient has dense breast tissue. Dense breast tissue can make it harder to find cancer on a mammogram. Dense breast tissue is also associated with an incr eased risk of breast cancer. This information about the result of the mammogram report was provided to the patient to raise their awareness. Use this report when you speak with the patient about their risks for breast cancer, which includes their family history. At that time, you may recommend additional screening tests (Ultrasoun d or MRI) as these tests may add significant information. A negative radiographic report should not delay biopsy if a dominant or clinically suspicious mass is present. Up to ten percent of cancers are not identified on mammography. A negative report may reinforce clinical impression. Adenosis and dense breasts may obscure an underlying neoplasm. False positive reports average 6 to 10%. Patient will receive a letter notifying them of these results.
== END ==
PROVIDERS: PCP Nurse Practitioner Family; Visit Provider Nurse Practitioner Family
DX: Z12.31 Encounter for screening mammogram for malignant neoplasm of breast (principal); R92.8 Other abnormal and inconclusive findings on diagnostic imaging of breast; N60.01 Solitary cyst of right breast
CPT/HCPCS: 76642; 77063; 77067

== ENCOUNTER 2022-04-14 00:53 | Outpatient (CLI) | payer MEDICARE, OTHER, SELFPAY ==
--- NOTE | 2022-04-14 08:15 | DI.MAMMO_ITS ---
Exam(s) MAMMO DIAGNOSTIC UNI EXAM: MAMMO DIAGNOSTIC UNI - RIGHT CLINICAL HISTORY: 3 to 6 month follow up, R92.8, f/u to abn mammo, Z09. TECHNIQUE: Unilateral right breast CC and MLO mammographic images were obtained with 3D tomosynthesi s technique and utilizing computer aided detection (CAD). COMPARISON: Prior mammograms were reviewed, the most recent being October 2021.. Ultrasound October 2021 also reviewed. FINDINGS: Fibroglandular tissue pattern in the right breast is again noted be moderately dense. Previously described nodule posteriorly has slightly further increased in size. In addition, there is a new smaller nodular density seen slightly anterior to the larger posterior no dule, this new noncalcified nodule measuring approximately 7 x 6 millimeters and located 6 cm in from the nipple on the MLO view. Spot compression view and ultrasound recommended. No new malignant-appearing microcalcification groups in the right breast. No new architectural distortion or skin thickening-traction. IMPRESSION: 1. There is a new 7 millimeter noncalcified well-defined nodule in the right breast located 6 cm in f rom the nipple. Ultrasound recommended. 2. The previously described more posteriorly located 9 o'clock position nodule has slightly increased in size. This will also be studied with ultrasound. Appropriate follow-up is to schedule this patient for right breast ultrasound. She was apparently no t able to stay for her scheduled ultrasound examination today. BI-RADS Category 0 - Assessment Incomplete: Need additional imaging evaluation Breast Density - Category C - Heterogeneously dense Breast density Category C or D implies that the patient has dense breast tissue. Dense breast tissue can make it harder to find cancer on a mammogram. Dense breast tissue is also associated with an incr eased risk of breast cancer. This information about the result of the mammogram report was provided to the patient to raise their awareness. Use this report when you speak with the patient about their risks for breast cancer, which includes their family history. At that time, you may recommend additional screening tests (Ultrasoun d or MRI) as these tests may add significant information. A negative radiographic report should not delay biopsy if a dominant or clinically suspicious mass is present. Up to ten percent of cancers are not identified on mammography. A negative report may reinforce clinical impression. Adenosis and dense breasts may obscure an underlying neoplasm. False positive reports average 6 to 10%. Patient will receive a letter notifying them of these results.
== END 2022-04-14 01:13 ==
LOC: DI 00:53
PROVIDERS: PCP Nurse Practitioner Family; Visit Provider Nurse Practitioner Family
DX: R92.8 Other abnormal and inconclusive findings on diagnostic imaging of breast (principal); N63.15 Unspecified lump in the right breast, overlapping quadrants; N63.11 Unspecified lump in the right breast, upper outer quadrant
CPT/HCPCS: 77061; 77065; G0279

== ENCOUNTER 2022-04-20 02:01 | Outpatient (CLI) | payer MEDICARE, SELFPAY ==
--- NOTE | 2022-04-20 10:00 | DI.US_ITS ---
Exam(s) US BREAST RT LIMITED EXAM: US BREAST RT LIMITED CLINICAL HISTORY: 7 mm noncalcified well-defined nodule 6 cm from nipple TECHNIQUE: Ultrasound right breast performed using standard protocol. COMPARISON: US US BREAST RT COMPLETE from 10/24/2021 FINDINGS: No solid masses, hypoechoic foci, areas of abnormal shadowing, or areas of skin thickening. Previously noted cyst in the posterolateral right breast is now measured at 1.8 x 0.6 x 2.0 cm compar ed to 1.6 x 1.6 x 0.5 cm on the prior study. There are no suspicious features A 7 x 4 x 8 millimeter cyst is noted in the 10 o'clock position 5 cm from the nipple, accounting for the nodule on the mammogram. Two additional cysts were noted closer to the nipple, 1 in the 10 o'susan ck position measuring 1 cm in the other in the 7 o'clock position measuring 6 millimeters in greatest dimension. IMPRESSION: No sonographically suspicious finding. Multiple cysts. BI-RADS Category 2 - Benign Findings The patient is due for bilateral screening mammography October 2022. DATA REPOSITORY:
== END 2022-04-20 02:21 ==
LOC: DI 02:02
PROVIDERS: PCP Nurse Practitioner Family; Visit Provider Nurse Practitioner Family
DX: N60.02 Solitary cyst of left breast (principal)
CPT/HCPCS: 76642

== ENCOUNTER 2022-06-09 01:05 | Outpatient (CLI) | payer MEDICARE, SELFPAY ==
[2022-06-09 12:55] LABS: Anion Gap 9.7 mmol/L (3-11); BUN 22 mg/dL (7-18); CO2 26.3 mmol/L (21.0-32.0); Calcium 9.2 mg/dL (8.5-10.1); Calculated LDL 147 mg/dL (<100); Chloride 106 mmol/L (98-107); Cholesterol 242 mg/dL (<200); Estimated GFR 61.75 (mL/min/1.73m2); Glucose 107 mg/dL (74-106); HDL Cholesterol 48 mg/dL (40-60); Potassium 4.2 mmol/L (3.5-5.1); Sodium 142 mmol/L (136-145); Triglyceride 238 mg/dL (<150)
== END 2022-06-09 01:06 | disposition home or self-care (01) ==
LOC: LOS 01:06
PROVIDERS: PCP Nurse Practitioner Family; Visit Provider Nurse Practitioner Family
DX: E78.5 Hyperlipidemia, unspecified (principal)
CPT/HCPCS: 36415; 80048; 80061

== ENCOUNTER 2022-08-21 18:29 | Outpatient (REF) | payer MEDICARE, SELFPAY ==
[2022-08-21 22:09] LABS: ALT 22 U/L (14-59); AST 21 U/L (15-37); Albumin 4.1 g/dL (3.4-5.0); Alkaline Phosphatase 77 U/L (46-116); BUN 20 mg/dL (7-18); Bilirubin, Total 0.4 mg/dL (0.2-1.0); CREATININE 0.7 mg/dL (0.55-1.02); Calcium 9.1 mg/dL (8.5-10.1); Chloride 104 mmol/L (98-107); Estimated GFR 94.15 (mL/min/1.73m2); Glucose 90 mg/dL (74-106); Potassium 4.6 mmol/L (3.5-5.1); Sodium 141 mmol/L (136-145); Total Protein 6.9 g/dL (6.4-8.2)
[2022-08-21 22:17] LABS: Abs Immature Grans 0.02 10^3/uL (0.0-0.06); Absolute Basophil Count 0.05 10^3/uL (0.0-0.2); Absolute Lymphocyte Count 2.04 10^3/uL (1.2-3.4); Absolute Monocyte Count 0.44 10^3/uL (0.1-0.8); Absolute Neutrophil Count 4.54 10^3/uL (1.2-6.7); Basophils % 0.7; HCT 42.2 % (36.0-46.0); HGB 13.6 g/dL (11.2-15.7); Immature Grans % 0.3; Lymphocytes % 28.8; MCH 28.6 pg (27.0-33.0); MCHC 32.2 % (32.0-36.0); MCV 89 fL (80-95); MPV 12.1 fL (8.0-11.0); Monocytes % 6.2; Platelet Count 171 10^3/uL (130-400); RBC 4.76 10^6/uL (3.93-5.22); RDW 12.3 % (11.7-14.6); RDW-SD 39.9 fL; WBC 7.09 10^3/uL (4.4-10.8)
[2022-08-23 11:18] LABS: Lyme Ab w Rflx to Lyme Confirm Negative (Negative)
[2022-08-24 21:32] LABS: Anaplasma phagocytophilum Negative (Negative); B. miyamotoi PCR Negative (Negative); Babesia divergens/MO-1 Negative (Negative); Babesia duncani Negative (Negative); Babesia microti Negative (Negative); Ehrlichia chaffeensis Negative (Negative); Ehrlichia ewingii/canis Negative (Negative); Ehrlichia muris eauclairensis Negative (Negative)
== END 2022-08-21 18:30 | disposition home or self-care (01) ==
LOC: LBN 18:29
PROVIDERS: PCP Nurse Practitioner Family; Visit Provider Nurse Practitioner Family
DX: R51.9 Headache, unspecified (principal); R68.89 Other general symptoms and signs; M54.2 Cervicalgia; F41.1 Generalized anxiety disorder; R42 Dizziness and giddiness; M54.59 Other low back pain
CPT/HCPCS: 80053; 87798; 85025; 86618

== ENCOUNTER 2022-08-25 00:40 | Outpatient (CLI) | payer MEDICARE, SELFPAY ==
--- NOTE | 2022-08-25 06:45 | DI.CT_ITS ---
Exam(s) CT HEAD WO EXAM: CT HEAD WO CLINICAL HISTORY: evaluate pathology,HEADACHE,R51.9. TECHNIQUE: Imaging Protocol: Axial computed tomography images with coronal and sagittal reformatted images were created and reviewed COMPARISON: No exams were available for comparison FINDINGS: There are no skull fractures. There is no fluid in the visualized paranasal sinuses. There is no evidence of intracranial hemorrhage, mass effect, or shift of midline structures. There are no extra-axial fluid collections. The ventricles are not enlarged or shifted and there is no blo od within the ventricular system nor within the basal cisterns. IMPRESSION: No acute intracranial findings on this noninfused CT scan of the brain. RADIATION DOSE DELIVERED: 731.49mGy.cm Total DLP DATA REPOSITORY: All CT scans at this facility are submitted to the National Radiology Data Registry (NRDR) Dose Index Registry (DIR) with the [employer] (ACR). RADIATION OPTIMIZATION: All CT scans at this facility use at least one of these dose optimization te chniques: automated exposure control; mA and/or kV adjustment per patient size (includes targeted exa ms where dose is matched to clinical indication); or iterative reconstruction.
--- NOTE | 2022-08-25 08:10 | DI.RAD_ITS ---
Exam(s) XR LUMBAR SPINE COMPLETE EXAM: XR LUMBAR SPINE COMPLETE CLINICAL HISTORY: evaluate pathology,BACK PAIN, M54.9. TECHNIQUE: 2D digital imaging was performed. COMPARISON: CR XR DEXA BONE DENSITY W/WO OLEG from 09/23/2020 FINDINGS: Six views: No evidence of fracture no prominent disc space narrowing. There is mild degenerative anterolisthesi s of L4 upon L5 due to facet arthropathy. There are no pars defects at this level. Mild disc space narrowing is noted other levels. There is preservation of disc height at L level. Bone density is a ge-appropriate. No osseous lesions. Mild scoliosis convex right. SI joints unremarkable. No osseo us lesions. Vascular calcifications noted in the abdominal aorta. IMPRESSION: Degenerative anterolisthesis L4 upon L5. There is approximately 5 mm anterior slippage of L4 upon L5 related to facet arthropathy. If clinically indicated flexion and extension lateral views can be pe rformed to determine the true amount of slippage during everyday activities. DATA REPOSITORY: RADIATION DOSE DELIVERED:
--- NOTE | 2022-08-25 08:11 | DI.RAD_ITS ---
Exam(s) XR CERVICAL SPINE COMP 4-5V EXAM: XR CERVICAL SPINE COMP 4-5V CLINICAL HISTORY: evaluate pathology,NECK PAIN,M54.2. TECHNIQUE: 2D digital imaging was performed. COMPARISON: No exams were available for comparison FINDINGS: Five views: No evidence of fracture, listhesis, nor offset of the spinal laminar line. There is moderate disc space narrowing at C5-6 level. Other disc spaces exhibit normal height. Ther e is some facet arthropathy. No facet malalignment. On the oblique views there are Luschka joint os teophyte seen on the left side at C6-7 level. None seen on the right side. None seen at C5-6 level. IMPRESSION: Degenerative disease is described above. C5-6 and C6-7 levels. DATA REPOSITORY: RADIATION DOSE DELIVERED:
== END 2022-08-25 01:00 ==
LOC: DI 00:40
PROVIDERS: PCP Nurse Practitioner Family; Visit Provider Nurse Practitioner Family
DX: M50.322 Other cervical disc degeneration at C5-C6 level (principal); M50.323 Other cervical disc degeneration at C6-C7 level
CPT/HCPCS: 70450; 72050; 72110

== ENCOUNTER 2022-08-30 07:27 | Outpatient (CLI) | payer MEDICARE, SELFPAY ==
--- NOTE | 2022-08-30 07:15 | DI.RAD_ITS ---
Exam(s) XR LUMBAR SPINE FLEX/EXT ONLY EXAM: XR LUMBAR SPINE FLEX/EXT ONLY CLINICAL HISTORY: DJD of lumbar spine,m47.816. TECHNIQUE: 2D digital imaging was performed. Seven views. Additional lateral views in flexion and extension were performed. COMPARISON: CR XR LUMBAR SPINE COMPLETE from 08/25/2022 FINDINGS: BONES: No fracture or destructive lesion. Vertebral body heights are maintained. Minimal endplate os teophytes. Moderate facet hypertrophy identified at L 4 5 causing slight spondylolisthesis. facet d egenerative changes also present at L5-S1.. No spondylolisthesis. DISKS: Intervertebral disc spaces are maintained. ALIGNMENT: Slight spondylolisthesis at L4-5 secondary to facet degenerative changes. No subluxation with flexion or extension. No scoliosis peer SOFT TISSUE: Normal. IMPRESSION: Mild spondylolisthesis secondary to facet degenerative changes at L4-5. No subluxation with flexion or extension. DATA REPOSITORY: RADIATION DOSE DELIVERED:
== END 2022-08-30 07:47 ==
LOC: DI 07:29
PROVIDERS: PCP Nurse Practitioner Family; Visit Provider Nurse Practitioner Family
DX: M47.816 Spondylosis without myelopathy or radiculopathy, lumbar region (principal)
CPT/HCPCS: 72120

== ENCOUNTER → 2023-02-28 01:51 | Outpatient (CLI) | payer MEDICARE, SELFPAY ==
--- NOTE | 2023-02-28 07:30 | DI.MAMMO_ITS ---
Exam(s) MAMMO SCREENING EXAM: MAMMO SCREENING CLINICAL HISTORY: screening,Z12.39. TECHNIQUE: Bilateral full field digital CC and MLO mammographic images were obtained with 3D tomosyn thesis and utilizing computer aided detection (CAD). COMPARISON: Prior mammograms were reviewed. Prior ultrasound reviewed FINDINGS: Fibroglandular tissue is again noted be moderately dense. No new significant focal left breast findings. In the right breast the previously described posterolaterally located nodule shown to be a cyst on ul trasound is again noted. It has further increased in size, presently measuring 2.4 x 2.0 cm. In addition, there are increasing nodules in the right breast now evident, appearing to be 5 new nod ules ranging up to 1.5 cm size. Ultrasound recommended. There are no new malignant-appearing microcalcification groups in either breast. There is no significant architectural distortion nor skin thickening-retraction. IMPRESSION: 1. No radiographic evidence of malignancy in left breast. 2. The previously described cyst in the posterolateral aspect of the right breast has further increas ed in size. In addition there are now 5 new smaller nodules in the right breast ranging up to 1.5 cm size. Ultrasound recommended to determine if these are solid or cystic. BI-RADS Category 0 - Assessment Incomplete: Need additional imaging evaluation Breast Density - Category C - Heterogeneously dense Breast density Category C or D implies that the patient has dense breast tissue. Dense breast tissue can make it harder to find cancer on a mammogram. Dense breast tissue is also associated with an incr eased risk of breast cancer. This information about the result of the mammogram report was provided to the patient to raise their awareness. Use this report when you speak with the patient about their risks for breast cancer, which includes their family history. At that time, you may recommend additional screening tests (Ultrasoun d or MRI) as these tests may add significant information. A negative radiographic report should not delay biopsy if a dominant or clinically suspicious mass is present. Up to ten percent of cancers are not identified on mammography. A negative report may reinforce clinical impression. Adenosis and dense breasts may obscure an underlying neoplasm. False positive reports average 6 to 10%. Patient will receive a letter notifying them of these results.
== END ==
PROVIDERS: PCP Nurse Practitioner Family; Visit Provider Nurse Practitioner Family
DX: Z12.31 Encounter for screening mammogram for malignant neoplasm of breast (principal); R92.323 Mammographic fibroglandular density, bilateral breasts
CPT/HCPCS: 77063; 77067

== ENCOUNTER → 2023-03-09 00:36 | Outpatient (CLI) | payer MEDICARE, SELFPAY ==
--- NOTE | 2023-03-09 | DI.US_ITS ---
Exam(s) US BREAST RT COMPLETE EXAM: US BREAST RT COMPLETE CLINICAL HISTORY: F/U MAMMO,INCREASED SIZE IN BREAST CYSTS,R92.8 TECHNIQUE: Ultrasound right breast performed using standard protocol. COMPARISON: Mammogram March 07 and exams back to 2014. Ultrasound 2021 and 2022 FINDINGS: Multiple cysts are again noted. Largest cyst is in the 9 o'clock position 3 cm from the nipple measu ring 2.3 x 1.0 x 2.2 cm. There is a 1.3 cm maximal dimension cyst in the 12 o'clock position. An 8 millimeter millimeter cyst is seen in the 6 o'clock position 2 cm from the nipple. No solid masses, areas of abnormal shadowing, or areas of skin thickening. IMPRESSION: No sonographically suspicious finding. Multiple cysts. BI-RADS Category 2 - Benign Findings Bilateral screening mammography recommended in 1 year. DATA REPOSITORY:
== END ==
PROVIDERS: PCP Nurse Practitioner Family; Visit Provider Nurse Practitioner Family
DX: N60.01 Solitary cyst of right breast
CPT/HCPCS: 76642

== ENCOUNTER → 2023-03-29 09:15 | Outpatient (CLI) | payer MEDICARE, SELFPAY ==
--- NOTE | 2023-03-29 10:17 | DI.CT_ITS ---
Exam(s) CT HEAD WO EXAM: CT HEAD WO CLINICAL HISTORY: fall with head injury, W19.XXXA. TECHNIQUE: Imaging Protocol: Axial computed tomography images with coronal and sagittal reformatted images were created and reviewed COMPARISON: CT CT HEAD WO from 08/25/2022 FINDINGS: Ventricles and Extra axial spaces: Normal in size and morphology for the patient's age. Hemorrhage: None. Cerebral parenchyma: No evidence of acute infarct or mass. Midline shift: None. Brainstem/Cerebellum: Normal. Calvarium: Normal. Visualized Paranasal sinuses:Clear. Mastoids: Clear. Soft Tissues: Unremarkable. ORBITS: Unremarkable. PITUITARY: Normal. IMPRESSION: No acute intracranial process. RADIATION DOSE DELIVERED: 716.95mGy.cm Total DLP DATA REPOSITORY: All CT scans at this facility are submitted to the National Radiology Data Registry (NRDR) Dose Index Registry (DIR) with the [employer] (ACR). RADIATION OPTIMIZATION: All CT scans at this facility use at least one of these dose optimization te chniques: automated exposure control; mA and/or kV adjustment per patient size (includes targeted exa ms where dose is matched to clinical indication); or iterative reconstruction.
== END ==
PROVIDERS: PCP Nurse Practitioner Family; Visit Provider Nurse Practitioner Family
DX: S09.90XA Unspecified injury of head, initial encounter (principal); X58.XXXA Exposure to other specified factors, initial encounter
CPT/HCPCS: 70450

== ENCOUNTER 2023-06-12 05:40 | Outpatient (CLI) | payer MEDICARE, SELFPAY ==
[2023-06-12 16:14] LABS: Anion Gap 3.9 mmol/L (3-11); BUN 33 mg/dL (7-18); CO2 27.1 mmol/L (21.0-32.0); CREATININE 0.9 mg/dL (0.55-1.02); Calcium 9.1 mg/dL (8.5-10.1); Calculated LDL 136 mg/dL (<100); Chloride 106 mmol/L (98-107); Cholesterol 223 mg/dL (<200); Estimated GFR 69.64 (mL/min/1.73m2); Glucose 114 mg/dL (74-106); HDL Cholesterol 54 mg/dL (40-60); Sodium 137 mmol/L (136-145); Triglyceride 169 mg/dL (<150)
[2023-06-13 19:10] LABS: Hepatitis C Ab w Rflx HCV PCR Negative (Negative)
== END 2023-06-12 05:41 | disposition home or self-care (01) ==
PROVIDERS: PCP Nurse Practitioner Family; Visit Provider Nurse Practitioner Family
DX: Z00.00 Encounter for general adult medical examination without abnormal findings (principal); E78.5 Hyperlipidemia, unspecified
CPT/HCPCS: 36415; 80048; 80061; 86803

== ENCOUNTER 2023-11-16 10:28 | Outpatient (REF) | payer MEDICARE, SELFPAY ==
[2023-11-19 12:04] LABS: Chlamydia Result Negative (Negative); GC Result Negative (Negative)
== END 2023-11-16 10:29 | disposition home or self-care (01) ==
LOC: LBN 10:28
PROVIDERS: PCP Nurse Practitioner Family; Visit Provider Obstetrics & Gynecology
DX: A64 Unspecified sexually transmitted disease (principal)
CPT/HCPCS: 87491; 87591

== ENCOUNTER 2024-07-04 00:24 | Outpatient (CLI) | payer MEDICARE, OTHER, SELFPAY ==
--- NOTE | 2024-07-04 08:30 | DI.MAMMO_ITS ---
Exam(s) MAMMO SCREENING EXAM: MAMMO SCREENING CLINICAL HISTORY: screening TECHNIQUE: Mammograms were interpreted according to the usual protocol including computer analysis w [employer] CAD system, tomosynthesis and C-view imaging. COMPARISON: 2016 through 2023 FINDINGS: The breasts are composed of heterogeneously dense fibroglandular densities, Breast Density category C . No suspicious masses or suspicious microcalcifications are seen. Circumscribed nodule is again noted in the upper outer quadrant of the right breast. The additional nodules noted on the previous exam which were found to be cysts by ultrasound have decreased in size. No skin thickening or abnormal axillary lymph nodes are seen. There has been no significant change from prior exams. IMPRESSION: BI-RADS Category 2 - Negative Mammogram with benign findings. Yearly screening mammography is recomm ended. Breast Density Category C, heterogeneously Dense. Breast density Category C or D implies that the patient has dense breast tissue. Dense breast tissue can make it harder to find cancer on a mammogram. Dense breast tissue is also associated with an incr eased risk of breast cancer. This information about the result of the mammogram report was provided to the patient to raise their awareness. Use this report when you speak with the patient about their risks for breast cancer, which includes their family history. At that time, you may recommend additional screening tests (Ultrasoun d or MRI) as these tests may add significant information. A negative radiographic report should not delay biopsy if a dominant or clinically suspicious mass is present. Up to ten percent of cancers are not identified on mammography. A negative report may reinforce clinical impression. Adenosis and dense breasts may obscure an underlying neoplasm. False positive reports average 6 to 10%.
== END 2024-07-04 00:44 ==
LOC: DI 00:24
PROVIDERS: PCP Nurse Practitioner Family; Visit Provider Obstetrics & Gynecology
DX: Z12.31 Encounter for screening mammogram for malignant neoplasm of breast (principal); R92.333 Mammographic heterogeneous density, bilateral breasts
CPT/HCPCS: 77063; 77067

== ENCOUNTER 2024-07-08 10:26 | Outpatient (REF) | payer MEDICARE, OTHER, SELFPAY ==
--- NOTE | 2024-07-08 10:00 | CER_PTH ---
PATIENT: Cierra Terrazas LOC: [facility] U#:[id number] AGE/SX: 68/F ROOM: RE07/08/[address]: Shaneka Salcedo DO : 1955 BED: DIS: 07/08/2024 SPEC #: [id number] RECD: 07/08/24 13:00 STATUS: NICO REYinka #: [id number] DESTINI: 07/08/24 10:[address]: Shaneka Salcedo DEPT: Surgical Specimen RECD BY: Lizz Toro ENTERED: 07/08/24 13:01 SP TYPE: CER OTHR DR: FAHEEM Dubon Tissues: 1 - CERVICAL BIOPSY Procedures: GROSS AND MICRO LEVEL 4 Comments: [id number]
== END 2024-07-08 10:27 | disposition home or self-care (01) ==
LOC: LBN 10:26
PROVIDERS: PCP Nurse Practitioner Family; Visit Provider Obstetrics & Gynecology
DX: N84.1 Polyp of cervix uteri (principal)
CPT/HCPCS: 88305

== ENCOUNTER 2024-08-19 17:58 | Outpatient (REF) | payer MEDICARE, OTHER, SELFPAY ==
[2024-08-19 21:58] LABS: Abs Immature Grans 0.01 10^3/uL (0.0-0.06); HCT 40.4 % (36.0-46.0); HGB 13.3 g/dL (11.2-15.7); Immature Grans % 0.1 %; MCH 29.4 pg (27.0-33.0); MCHC 32.9 % (32.0-36.0); MCV 89 fL (80-95); MPV 12.3 fL (8.0-11.0); Platelet Count 144 10^3/uL (130-400); RBC 4.52 10^6/uL (3.93-5.22); RDW 12.3 % (11.7-14.6); RDW-SD 40.2 fL; WBC 6.74 10^3/uL (4.4-10.8)
[2024-08-19 22:21] LABS: ALT 29 U/L (14-59); AST 19 U/L (15-37); Albumin 3.7 g/dL (3.4-5.0); Alkaline Phosphatase 79 U/L (46-116); Anion Gap 10.6 mmol/L (3-11); BUN 28 mg/dL (7-18); Bilirubin, Total 0.3 mg/dL (0.2-1.0); CO2 24.4 mmol/L (21.0-32.0); Calcium 8.8 mg/dL (8.5-10.1); Chloride 105 mmol/L (98-107); Estimated GFR 60.61 (mL/min/1.73m2); Glucose 120 mg/dL (74-106); Potassium 3.9 mmol/L (3.5-5.1); Sodium 140 mmol/L (136-145); TSH (W/Ref FT4) 0.89 uIU/mL (0.36-3.74); Total Protein 6.3 g/dL (6.4-8.2)
[2024-08-21 09:54] LABS: Lyme Ab w Rflx to Lyme Confirm Negative (Negative)
[2024-08-23 10:30] LABS: B. miyamotoi PCR Negative (Negative); Babesia divergens/MO-1 Negative (Negative); Ehrlichia muris eauclairensis Negative (Negative)
== END 2024-08-19 17:59 | disposition home or self-care (01) ==
LOC: NCHCN 17:58
PROVIDERS: PCP Nurse Practitioner Family; Visit Provider Physician Assistant
DX: R53.83 Other fatigue (principal)
CPT/HCPCS: 80053; 87798; 84443; 85025; 86618

== ENCOUNTER 2024-09-30 01:28 | Outpatient (CLI) | payer MEDICARE, OTHER, SELFPAY ==
--- NOTE | 2024-09-30 08:32 | DI.RAD_ITS ---
Exam(s) XR ARTHRITIS SERIES EXAM: XR ARTHRITIS SERIES CLINICAL HISTORY: hand arthritis,[facility] arthritis, m19.049. TECHNIQUE: 2D digital imaging was performed. COMPARISON: No exams were available for comparison FINDINGS: Two views of both hands (AP and [place] views): There are no fractures nor subluxations and there are no abnormal soft tissue calcifications evident. No radiopaque foreign bodies. No significant ulnar variance. Minimal if any significant findings at the 1st carpometacarpal joints of both hands.. Also no significant findings at the metacarpal phalangeal joints. No erosions at these articulations. Advanced degenerative changes at the interphalangeal joint of the right thumb. Degenerative changes also seen in the same articulation of the opposite-left thumb but somewhat less so. There is joint space narrowing and osteophytes at these articulations. There are also moderate degenerative changes seen at the DIP joints of all of the fingers both hands. There are some degenerative changes at the PIP joints of both 2nd-index fingers. Less so in the other PIP joints. IMPRESSION: As above. The most prominent degenerative changes are in the interphalangeal joint of the right thumb. Other findings as above. There are no erosions. DATA REPOSITORY: RADIATION DOSE DELIVERED:
== END 2024-09-30 01:48 ==
LOC: DI 01:28
PROVIDERS: PCP Nurse Practitioner Family; Visit Provider Nurse Practitioner Family
DX: M19.041 Primary osteoarthritis, right hand (principal)
CPT/HCPCS: 73120